=== PATIENT | female | born 1980 | race Two or more races ===

== ENCOUNTER 2018-11-20 11:59 | Emergency (ER) | payer OTHER ==
[2018-11-20 12:34] VITALS: BP 114/72; PULSE 93; TEMP 97.9; BMI 22.1
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
[2018-11-20] MEDS ORDERED: ACETAMINOPHEN 325 MG TABLET (FP) PO ONE (13:42)
[2018-11-20] MEDS ORDERED: LIDOCAINE 5% TOPICAL PATCH TP ONE (13:42)
[2018-11-20] MEDS ORDERED: CYCLOBENZAPRINE HCL 5 MG TABLET PO ONE (14:25)
[2018-11-20] MEDS ORDERED: ACETAMINOPHEN 325 MG TABLET (FP) ONE (14:49)
[2018-11-20] MEDS ORDERED: LIDOCAINE 5% TOPICAL PATCH ONE (14:49)
[2018-11-20] MEDS ORDERED: CYCLOBENZAPRINE HCL 10 MG TABLET (FP) ONE (14:49)
[2018-11-20] MEDS ORDERED: LIDOCAINE PATCH REMOVAL MC SCH (22:00)
== END 2018-11-20 15:44 | disposition home or self-care (01) ==
LOC: JER 11:59
DX: S39.011A Strain of muscle, fascia and tendon of abdomen, initial encounter (principal); V43.52XA Car driver injured in collision with other type car in traffic accident, initial encounter; W22.12XA Striking against or struck by front passenger side automobile airbag, initial encounter; Y92.414 Local residential or business street as the place of occurrence of the external cause; Y93.89 Activity, other specified; Y99.8 Other external cause status
CPT/HCPCS: 99281-25